=== PATIENT | female | born 2000 | race Two or more races ===

== ENCOUNTER 2020-03-07 16:46 | Emergency (ER) | payer OTHER ==
[~2020-03-07] VITALS: Ht 162.6 cm; Wt 59.0 kg
[2020-03-07 17:05] VITALS: BP 104/76
--- NOTE | 2020-03-07 17:27 | NUR ---
Patient discharged to home in stable condition. Written and verbal after care instructions given. Patient verbalizes understanding of instruction.
== END 2020-03-07 17:29 | disposition home or self-care (01) ==
LOC: ER 16:50
DX: S00.03XA Contusion of scalp, initial encounter (principal); R51 Headache; M54.2 Cervicalgia; V49.49XA Driver injured in collision with other motor vehicles in traffic accident, initial encounter; Y93.89 Activity, other specified; Y92.488 Other paved roadways as the place of occurrence of the external cause; Y99.8 Other external cause status